=== PATIENT | female | born 1935 | race Hispanic/Latino ===

== ENCOUNTER 2022-06-20 18:14 | Inpatient (IN) | payer MEDICARE ==
[~2022-06-20] VITALS: Ht 147.3 cm; Wt 72.1 kg
[~2022-06-20 18:14] MED LIST: POVIDONE IODINE 0.05% 0.05 % ML PO ONE; PROPOFOL IV EMULSION 10 MG/ML 20 ML VIAL ONE
[2022-06-20 18:45] LABS: BASOPHILS % 0.2 % (0.0-1.0); EOSINOPHILS # (AUTO) 0.1 (0.0-0.4); EOSINOPHILS % 1.6 % (0.0-6.0); HEMATOCRIT 31.3 % (34.2-44.1); HEMOGLOBIN 10.5 g/dL (12.0-16.0); LYMPHOCYTES # (AUTO) 0.5 (1.0-3.2); MEAN CORPUSCULAR HEMOGLOBIN 31.1 pg (28-32); MEAN CORPUSCULAR HGB CONC 33.5 g/dL (31-35); MEAN CORPUSCULAR VOLUME 92.6 fL (81-99); MONOCYTES # (AUTO) 0.4 (0.2-0.8); MONOCYTES % 6.6 % (4.4-11.3); NEUTROPHILS # (AUTO) 4.8 (2.1-6.9); NEUTROPHILS % 82.3 % (38.7-80.0); PLATELET COUNT 171 x10e3/uL (140-360); RED BLOOD COUNT 3.38 x10e6/uL (3.6-5.1); RED CELL DISTRIBUTION WIDTH 13.7 % (11.7-14.4)
[2022-06-20 18:51] LABS: PARTIAL THROMBOPLASTIN TIME 36.2 seconds (23.8-35.5); PROTHROMBIN TIME 13.7 seconds (11.9-14.5)
[2022-06-20 18:58] LABS: ALBUMIN 3.2 g/dL (3.5-5.0); ALBUMIN/GLOBULIN RATIO 0.9 (0.8-2.0); ALKALINE PHOSPHATASE 58 IU/L (40-150); BLOOD UREA NITROGEN 27 mg/dL (7-26); BUN/CREATININE RATIO 20 (6-25); CALCIUM 9.7 mg/dL (8.4-10.2); CARBON DIOXIDE 22 mmol/L (22-29); CHLORIDE 98 mmol/L (98-107); CREATINE KINASE 43 IU/L (29-168); CREATININE, SERUM 1.34 mg/dL (0.57-1.11); GLUCOSE 97 mg/dL (74-118); SODIUM 129 mmol/L (136-145)
[2022-06-20 18:59] LABS: ALANINE AMINOTRANSFERASE < 6 IU/L (0-55)
[2022-06-20 19:08] LABS: B-TYPE NATRIURETIC PEPTIDE2 112.6 pg/mL (0-100)
[2022-06-20] MEDS ORDERED: DEXTROSE 50% SYRINGE 50 ML IV PRN (22:45)
[2022-06-20] MEDS ORDERED: ONDANSETRON HCL INJ 2MG/ML 2ML 2 MG/ML VIAL IV PRN (22:45)
[2022-06-21] VITALS (14 sets, daily range): BP systolic 117–188; BP diastolic 65–89; PULSE 66–81; RESP 16–21; TEMP 97.6–98; O2SAT 93–99
[2022-06-21] MEDS ORDERED: SODIUM CHLORIDE 0.9% 250ML 250 ML ONE (00:18)
[2022-06-21] MEDS ORDERED: SINEMET 25-1001 EACH PO (03:41)
[2022-06-21] MEDS ORDERED: CYMBALTA30 MG (03:54)
[2022-06-21] MEDS ORDERED: ROPINIROLE HCL4 M1 PO (03:54)
[2022-06-21] MEDS ORDERED: GUAIFENESIN600 M1 PO (03:54)
[2022-06-21] MEDS ORDERED: FLOMAX0.4 MG PO (03:54)
[2022-06-21] MEDS ORDERED: PANTOPRAZOLE SO40 MG PO (03:54)
[2022-06-21] MEDS ORDERED: MYRBETRIQ50 MG PO (03:54)
[2022-06-21] MEDS ORDERED: ALLEGRA ALLERGY60 MG PO (03:54)
[2022-06-21] MEDS ORDERED: NAMENDA10 MG PO (03:54)
[2022-06-21] MEDS ORDERED: NUPLAZID34 MG PO (03:54)
[2022-06-21] MEDS ORDERED: MODAFINIL100 MG PO (03:54)
[2022-06-21] MEDS ORDERED: HYDRALAZINE HCL 20 MG/ML VIAL IV PRN (04:00)
[2022-06-21] MEDS ORDERED: TORSEMIDE20 MG PO (04:06)
[2022-06-21] MEDS ORDERED: NEURONTIN100 MG PO (04:06)
[2022-06-21] MEDS ORDERED: TIZANIDINE HCL4 M1 PO (04:06)
[2022-06-21] MEDS ORDERED: TYLENOL325 MG PO (04:06)
[2022-06-21 06:49] LABS: BASOPHILS % 0.5 % (0.0-1.0); EOSINOPHILS # (AUTO) 0.2 (0.0-0.4); EOSINOPHILS % 4.2 % (0.0-6.0); HEMATOCRIT 27.9 % (34.2-44.1); HEMOGLOBIN 9.3 g/dL (12.0-16.0); LYMPHOCYTES # (AUTO) 0.7 (1.0-3.2); LYMPHOCYTES % 17.8 % (18.0-39.1); MEAN CORPUSCULAR HEMOGLOBIN 30.6 pg (28-32); MEAN CORPUSCULAR HGB CONC 33.3 g/dL (31-35); MEAN CORPUSCULAR VOLUME 91.8 fL (81-99); MONOCYTES # (AUTO) 0.4 (0.2-0.8); NEUTROPHILS # (AUTO) 2.6 (2.1-6.9); NEUTROPHILS % 67.2 % (38.7-80.0); PLATELET COUNT 181 x10e3/uL (140-360); RED BLOOD COUNT 3.04 x10e6/uL (3.6-5.1); RED CELL DISTRIBUTION WIDTH 13.2 % (11.7-14.4)
[2022-06-21 07:01] LABS: ALBUMIN 2.7 g/dL (3.5-5.0); ALBUMIN/GLOBULIN RATIO 0.8 (0.8-2.0); ALKALINE PHOSPHATASE 51 IU/L (40-150); ANION GAP 12.5 mmol/L (8-16); BLOOD UREA NITROGEN 24 mg/dL (7-26); BUN/CREATININE RATIO 20 (6-25); CALCIUM 9.3 mg/dL (8.4-10.2); CARBON DIOXIDE 22 mmol/L (22-29); CHLORIDE 101 mmol/L (98-107); CREATININE, SERUM 1.18 mg/dL (0.57-1.11); GLUCOSE 79 mg/dL (74-118); POTASSIUM 4.5 mmol/L (3.5-5.1); SODIUM 131 mmol/L (136-145)
[2022-06-21 07:14] LABS: ALANINE AMINOTRANSFERASE < 6 IU/L (0-55)
[2022-06-21] MEDS: INSULIN REGULAR, HUMAN 100 UNIT/1 ML SQ SCH ×4 (07:30→20:30)
[2022-06-21] MEDS: CARBIDOPA/LEVODOPA 25/100 TAB PO SCH ×4 (09:25→20:36)
[2022-06-21] MEDS ORDERED: AZITHROMYCIN 250 MG TAB PO ONE (09:45)
[2022-06-21] MEDS ORDERED: PANTOPRAZOLE SOD 40 MG TABEC PO ONE (09:45)
[2022-06-21] MEDS: TORSEMIDE 10 MG TAB PO SCH (10:05)
[2022-06-21] MEDS: ALBUTEROL SULF 0.083% NEB SOLN 3 ML NEB NEB SCH ×2 (14:45→20:05)
[2022-06-21] MEDS ORDERED: ACETAMINOPHEN 325 MG TAB PO PRN (18:45)
[2022-06-21] MEDS ORDERED: TIZANIDINE HCL 4 MG TAB PO PRN (18:45)
[2022-06-21] MEDS: GABAPENTIN 100 MG CAP PO SCH (20:36)
[2022-06-21] MEDS: HEPARIN SOD (PORCINE) 5,000 UNIT/ML VIAL SC SCH (20:45)
[2022-06-22] VITALS (10 sets, daily range): BP systolic 115–141; BP diastolic 58–78; PULSE 72–80; RESP 16–21; TEMP 97.4–98.3; O2SAT 93–98
[2022-06-22] MEDS ORDERED: LORAZEPAM INJ 2 MG/ML VIAL IV PRN (00:45)
[2022-06-22 06:45] LABS: BASOPHILS % 0.8 % (0.0-1.0); EOSINOPHILS # (AUTO) 0.1 (0.0-0.4); HEMATOCRIT 28.7 % (34.2-44.1); HEMOGLOBIN 9.6 g/dL (12.0-16.0); LYMPHOCYTES # (AUTO) 0.8 (1.0-3.2); LYMPHOCYTES % 16.8 % (18.0-39.1); MEAN CORPUSCULAR HEMOGLOBIN 30.9 pg (28-32); MEAN CORPUSCULAR HGB CONC 33.4 g/dL (31-35); MEAN CORPUSCULAR VOLUME 92.3 fL (81-99); MONOCYTES # (AUTO) 0.4 (0.2-0.8); MONOCYTES % 9.1 % (4.4-11.3); NEUTROPHILS # (AUTO) 3.3 (2.1-6.9); NEUTROPHILS % 70.1 % (38.7-80.0); PLATELET COUNT 226 x10e3/uL (140-360); RED BLOOD COUNT 3.11 x10e6/uL (3.6-5.1); RED CELL DISTRIBUTION WIDTH 13.3 % (11.7-14.4)
[2022-06-22] MEDS: INSULIN REGULAR, HUMAN 100 UNIT/1 ML SQ SCH ×4 (07:30→20:57)
[2022-06-22 07:31] LABS: ANION GAP 12.3 mmol/L (8-16); CALCIUM 9.1 mg/dL (8.4-10.2); CREATININE, SERUM 1.79 mg/dL (0.57-1.11); POTASSIUM 4.3 mmol/L (3.5-5.1)
[2022-06-22] MEDS: LEVALBUTEROL HCL SOLN NEBU 0.63 MG/3 ML NEB INH SCH ×3 (07:43→19:15)
[2022-06-22] MEDS: AZITHROMYCIN 250 MG TAB PO SCH (08:49)
[2022-06-22] MEDS: TORSEMIDE 10 MG TAB PO SCH (08:49)
[2022-06-22] MEDS: PANTOPRAZOLE SOD 40 MG TABEC PO SCH (08:49)
[2022-06-22] MEDS: DULOXETINE HCL 30 MG DELAYED RELEASE PO SCH (08:49)
[2022-06-22] MEDS: GABAPENTIN 100 MG CAP PO SCH ×3 (08:49→20:57)
[2022-06-22] MEDS: GUAIFENESIN 600 MG TAB PO SCH (08:49)
[2022-06-22] MEDS: LORATADINE 10 MG TAB PO SCH (08:50)
[2022-06-22] MEDS: CARBIDOPA/LEVODOPA 25/100 TAB PO SCH ×4 (08:50→20:58)
[2022-06-22] MEDS: HEPARIN SOD (PORCINE) 5,000 UNIT/ML VIAL SC SCH ×2 (08:58→21:06)
[2022-06-22] MEDS: MODAFINIL 100 MG TAB PO SCH (09:00)
[2022-06-22] MEDS ORDERED: PIMAVANSERIN PO SCH (09:00)
[2022-06-22] MEDS ORDERED: MEMANTINE 10 MG TAB PO SCH (09:00)
[2022-06-22] MEDS ORDERED: TAMSULOSIN HCL 0.4 MG CAP PO SCH (09:00)
[2022-06-22] MEDS ORDERED: MYBETRIQ PO SCH (09:00)
[2022-06-22] MEDS ORDERED: ROPINIROLE HCL 1 MG TAB PO SCH (09:30)
[2022-06-22] MEDS: MEMANTINE 10 MG TAB PO SCH (20:58)
[2022-06-22] MEDS: ROPINIROLE HCL 1 MG TAB PO SCH (20:58)
[2022-06-22] MEDS: MYBETRIQ PO SCH (21:00)
[2022-06-23] VITALS (13 sets, daily range): BP systolic 128–144; BP diastolic 67–81; PULSE 70–83; RESP 16–20; TEMP 97.5–99; O2SAT 93–100
[2022-06-23] MEDS: LEVALBUTEROL HCL SOLN NEBU 0.63 MG/3 ML NEB INH SCH ×4 (01:05→19:50)
[2022-06-23] MEDS: PIMAVANSERIN PO SCH ×2 (04:08→13:09)
[2022-06-23] MEDS: INSULIN REGULAR, HUMAN 100 UNIT/1 ML SQ SCH ×4 (07:30→21:00)
[2022-06-23] MEDS: DULOXETINE HCL 30 MG DELAYED RELEASE PO SCH (09:03)
[2022-06-23] MEDS: TORSEMIDE 10 MG TAB PO SCH (09:03)
[2022-06-23] MEDS: PANTOPRAZOLE SOD 40 MG TABEC PO SCH (09:03)
[2022-06-23] MEDS: CARBIDOPA/LEVODOPA 25/100 TAB PO SCH ×4 (09:04→21:14)
[2022-06-23] MEDS: AZITHROMYCIN 250 MG TAB PO SCH (09:04)
[2022-06-23] MEDS: LORATADINE 10 MG TAB PO SCH (09:04)
[2022-06-23] MEDS: MODAFINIL 100 MG TAB PO SCH (09:04)
[2022-06-23] MEDS: GUAIFENESIN 600 MG TAB PO SCH (09:04)
[2022-06-23] MEDS: MEMANTINE 10 MG TAB PO SCH ×2 (09:05→21:15)
[2022-06-23] MEDS: GABAPENTIN 100 MG CAP PO SCH ×3 (09:05→21:15)
[2022-06-23] MEDS: HEPARIN SOD (PORCINE) 5,000 UNIT/ML VIAL SC SCH ×2 (09:14→21:22)
[2022-06-23] MEDS ORDERED: ONDANSETRON HCL 4 MG ORAL DISINTEGRATING TAB PO PRN (11:45)
[2022-06-23] MEDS: TAMSULOSIN HCL 0.4 MG CAP PO SCH (13:08)
[2022-06-23] MEDS ORDERED: MAGNESIUM200 MG (18:00)
[2022-06-23] MEDS: MYBETRIQ PO SCH (21:00)
[2022-06-23] MEDS: ROPINIROLE HCL 1 MG TAB PO SCH (21:14)
[2022-06-24] VITALS (11 sets, daily range): BP systolic 107–138; BP diastolic 67–77; PULSE 72–81; RESP 16–19; TEMP 97.3–98.4; O2SAT 94–100
[2022-06-24] MEDS: LEVALBUTEROL HCL SOLN NEBU 0.63 MG/3 ML NEB INH SCH ×4 (00:30→19:50)
[2022-06-24 05:48] LABS: BASOPHILS % 0.3 % (0.0-1.0); EOSINOPHILS # (AUTO) 0.1 (0.0-0.4); EOSINOPHILS % 1.4 % (0.0-6.0); HEMOGLOBIN 9.4 g/dL (12.0-16.0); LYMPHOCYTES # (AUTO) 0.4 (1.0-3.2); LYMPHOCYTES % 9.5 % (18.0-39.1); MEAN CORPUSCULAR HEMOGLOBIN 30.4 pg (28-32); MEAN CORPUSCULAR HGB CONC 32.4 g/dL (31-35); MEAN CORPUSCULAR VOLUME 93.9 fL (81-99); MONOCYTES # (AUTO) 0.2 (0.2-0.8); MONOCYTES % 4.9 % (4.4-11.3); NEUTROPHILS # (AUTO) 3.1 (2.1-6.9); NEUTROPHILS % 83.6 % (38.7-80.0); PLATELET COUNT 193 x10e3/uL (140-360); RED BLOOD COUNT 3.09 x10e6/uL (3.6-5.1); RED CELL DISTRIBUTION WIDTH 13.8 % (11.7-14.4)
[2022-06-24 06:15] LABS: ALANINE AMINOTRANSFERASE < 6 IU/L (0-55); ALBUMIN 2.7 g/dL (3.5-5.0); ALBUMIN/GLOBULIN RATIO 0.8 (0.8-2.0); ALKALINE PHOSPHATASE 46 IU/L (40-150); ANION GAP 12.3 mmol/L (8-16); BLOOD UREA NITROGEN 24 mg/dL (7-26); BUN/CREATININE RATIO 15 (6-25); CALCIUM 8.8 mg/dL (8.4-10.2); CARBON DIOXIDE 24 mmol/L (22-29); CHLORIDE 101 mmol/L (98-107); CREATININE, SERUM 1.62 mg/dL (0.57-1.11); GLUCOSE 87 mg/dL (74-118); POTASSIUM 4.3 mmol/L (3.5-5.1); SODIUM 133 mmol/L (136-145)
[2022-06-24] MEDS: INSULIN REGULAR, HUMAN 100 UNIT/1 ML SQ SCH ×4 (07:30→20:33)
[2022-06-24] MEDS: CARBIDOPA/LEVODOPA 25/100 TAB PO SCH ×4 (09:00→20:35)
[2022-06-24] MEDS: GABAPENTIN 100 MG CAP PO SCH ×3 (09:00→20:35)
[2022-06-24] MEDS: HEPARIN SOD (PORCINE) 5,000 UNIT/ML VIAL SC SCH ×2 (09:49→20:39)
[2022-06-24] MEDS: GUAIFENESIN 600 MG TAB PO SCH (13:46)
[2022-06-24] MEDS: LORATADINE 10 MG TAB PO SCH (13:46)
[2022-06-24] MEDS: TAMSULOSIN HCL 0.4 MG CAP PO SCH (13:46)
[2022-06-24] MEDS: AZITHROMYCIN 250 MG TAB PO SCH (13:46)
[2022-06-24] MEDS: DULOXETINE HCL 30 MG DELAYED RELEASE PO SCH (13:46)
[2022-06-24] MEDS: TORSEMIDE 10 MG TAB PO SCH (13:50)
[2022-06-24] MEDS: MODAFINIL 100 MG TAB PO SCH (13:50)
[2022-06-24] MEDS: MEMANTINE 10 MG TAB PO SCH ×2 (13:50→20:35)
[2022-06-24] MEDS: PIMAVANSERIN PO SCH (13:52)
[2022-06-24] MEDS: PANTOPRAZOLE SOD 40 MG TABEC PO SCH (18:13)
[2022-06-24] MEDS: MYBETRIQ PO SCH (20:40)
[2022-06-24] MEDS: ROPINIROLE HCL 1 MG TAB PO SCH (20:40)
[2022-06-25] VITALS (11 sets, daily range): BP systolic 85–162; BP diastolic 57–88; PULSE 75–96; RESP 16–19; TEMP 97.4–98.8; O2SAT 89–98
[2022-06-25] MEDS: LEVALBUTEROL HCL SOLN NEBU 0.63 MG/3 ML NEB INH SCH ×4 (00:05→19:05)
[2022-06-25 05:41] LABS: BASOPHILS % 0.3 % (0.0-1.0); EOSINOPHILS # (AUTO) 0.2 (0.0-0.4); EOSINOPHILS % 4.4 % (0.0-6.0); HEMATOCRIT 28.3 % (34.2-44.1); HEMOGLOBIN 9.2 g/dL (12.0-16.0); LYMPHOCYTES # (AUTO) 0.6 (1.0-3.2); LYMPHOCYTES % 16.6 % (18.0-39.1); MEAN CORPUSCULAR HEMOGLOBIN 30.6 pg (28-32); MEAN CORPUSCULAR HGB CONC 32.5 g/dL (31-35); MONOCYTES # (AUTO) 0.4 (0.2-0.8); MONOCYTES % 9.5 % (4.4-11.3); NEUTROPHILS # (AUTO) 2.5 (2.1-6.9); NEUTROPHILS % 68.9 % (38.7-80.0); PLATELET COUNT 158 x10e3/uL (140-360); RED BLOOD COUNT 3.01 x10e6/uL (3.6-5.1); RED CELL DISTRIBUTION WIDTH 13.7 % (11.7-14.4)
[2022-06-25 06:10] LABS: ALBUMIN 2.7 g/dL (3.5-5.0); ALBUMIN/GLOBULIN RATIO 0.9 (0.8-2.0); ANION GAP 12.3 mmol/L (8-16); CALCIUM 8.8 mg/dL (8.4-10.2); CREATININE, SERUM 1.5 mg/dL (0.57-1.11); POTASSIUM 4.3 mmol/L (3.5-5.1)
[2022-06-25] MEDS: INSULIN REGULAR, HUMAN 100 UNIT/1 ML SQ SCH ×4 (07:30→21:00)
[2022-06-25] MEDS: AZITHROMYCIN 250 MG TAB PO SCH (08:14)
[2022-06-25] MEDS: DULOXETINE HCL 30 MG DELAYED RELEASE PO SCH (08:14)
[2022-06-25] MEDS: MEMANTINE 10 MG TAB PO SCH ×2 (08:14→21:29)
[2022-06-25] MEDS: MODAFINIL 100 MG TAB PO SCH (08:14)
[2022-06-25] MEDS: GABAPENTIN 100 MG CAP PO SCH ×3 (08:14→21:30)
[2022-06-25] MEDS: GUAIFENESIN 600 MG TAB PO SCH (08:14)
[2022-06-25] MEDS: TORSEMIDE 10 MG TAB PO SCH (08:17)
[2022-06-25] MEDS: LORATADINE 10 MG TAB PO SCH (08:17)
[2022-06-25] MEDS: CARBIDOPA/LEVODOPA 25/100 TAB PO SCH ×4 (08:17→21:30)
[2022-06-25] MEDS: HEPARIN SOD (PORCINE) 5,000 UNIT/ML VIAL SC SCH ×2 (10:00→21:34)
[2022-06-25] MEDS: TAMSULOSIN HCL 0.4 MG CAP PO SCH (12:46)
[2022-06-25] MEDS: PIMAVANSERIN PO SCH (12:50)
[2022-06-25] MEDS: PANTOPRAZOLE SOD 40 MG TABEC PO SCH (17:54)
[2022-06-25] MEDS: ROPINIROLE HCL 1 MG TAB PO SCH (21:30)
[2022-06-26] VITALS (12 sets, daily range): BP systolic 106–155; BP diastolic 66–88; PULSE 59–102; RESP 15–20; TEMP 97.5–99; O2SAT 86–100
[2022-06-26] MEDS: MYBETRIQ PO SCH (00:11)
[2022-06-26] MEDS: LEVALBUTEROL HCL SOLN NEBU 0.63 MG/3 ML NEB INH SCH ×4 (00:50→19:25)
[2022-06-26 01:01] LABS: % IRON SATURATION 12 % (15-50); IRON 28 ug/dL (50-170); TOTAL IRON BINDING CAPACITY 231 ug/dL (261-478); TRANSFERRIN 165 mg/dL (180-382)
[2022-06-26 06:48] LABS: BASOPHILS % 0.3 % (0.0-1.0); EOSINOPHILS # (AUTO) 0.2 (0.0-0.4); EOSINOPHILS % 5.1 % (0.0-6.0); HEMOGLOBIN 8.7 g/dL (12.0-16.0); LYMPHOCYTES # (AUTO) 0.6 (1.0-3.2); LYMPHOCYTES % 14.8 % (18.0-39.1); MEAN CORPUSCULAR HEMOGLOBIN 30.4 pg (28-32); MEAN CORPUSCULAR HGB CONC 32.2 g/dL (31-35); MEAN CORPUSCULAR VOLUME 94.4 fL (81-99); MONOCYTES # (AUTO) 0.3 (0.2-0.8); MONOCYTES % 8.2 % (4.4-11.3); NEUTROPHILS # (AUTO) 2.8 (2.1-6.9); NEUTROPHILS % 71.3 % (38.7-80.0); PLATELET COUNT 166 x10e3/uL (140-360); RED BLOOD COUNT 2.86 x10e6/uL (3.6-5.1); RED CELL DISTRIBUTION WIDTH 13.8 % (11.7-14.4)
[2022-06-26 07:05] LABS: ANION GAP 11.1 mmol/L (8-16); CALCIUM 8.7 mg/dL (8.4-10.2); CREATININE, SERUM 1.32 mg/dL (0.57-1.11); POTASSIUM 4.1 mmol/L (3.5-5.1)
[2022-06-26] MEDS: INSULIN REGULAR, HUMAN 100 UNIT/1 ML SQ SCH ×4 (07:30→21:00)
[2022-06-26] MEDS ORDERED: AMLODIPINE BESYLATE 5 MG TAB PO SCH (09:00)
[2022-06-26] MEDS: CARBIDOPA/LEVODOPA 25/100 TAB PO SCH ×4 (09:00→21:11)
[2022-06-26] MEDS: GABAPENTIN 100 MG CAP PO SCH ×3 (09:00→21:10)
[2022-06-26] MEDS: PIMAVANSERIN PO SCH (12:00)
[2022-06-26] MEDS: PANTOPRAZOLE SOD 40 MG TABEC PO SCH (14:48)
[2022-06-26] MEDS: MEMANTINE 10 MG TAB PO SCH ×2 (15:04→21:10)
[2022-06-26] MEDS: LORATADINE 10 MG TAB PO SCH (15:04)
[2022-06-26] MEDS: DULOXETINE HCL 30 MG DELAYED RELEASE PO SCH (15:04)
[2022-06-26] MEDS: TAMSULOSIN HCL 0.4 MG CAP PO SCH (15:04)
[2022-06-26] MEDS: GUAIFENESIN 600 MG TAB PO SCH (15:04)
[2022-06-26] MEDS: AZITHROMYCIN 250 MG TAB PO SCH (15:05)
[2022-06-26] MEDS: MODAFINIL 100 MG TAB PO SCH (15:05)
[2022-06-26] MEDS: TORSEMIDE 10 MG TAB PO SCH (15:05)
[2022-06-26] MEDS: ROPINIROLE HCL 1 MG TAB PO SCH (21:10)
[2022-06-26] MEDS: NYSTATIN SUSPENSION 5 ML UDC PO SCH (22:20)
[2022-06-27] VITALS (24 sets, daily range): BP systolic 78–114; BP diastolic 57–85; PULSE 54–139; RESP 16–25; TEMP 98–99.5; O2SAT 93–100
[2022-06-27] MEDS: LEVALBUTEROL HCL SOLN NEBU 0.63 MG/3 ML NEB INH SCH ×4 (02:10→19:20)
[2022-06-27] MEDS: MYBETRIQ PO SCH ×2 (02:28→21:08)
[2022-06-27] MEDS: NYSTATIN SUSPENSION 5 ML UDC PO SCH ×3 (05:28→21:49)
[2022-06-27 07:06] LABS: ANION GAP 13.6 mmol/L (8-16); CALCIUM 8.9 mg/dL (8.4-10.2); CREATININE, SERUM 1.71 mg/dL (0.57-1.11); POTASSIUM 4.6 mmol/L (3.5-5.1)
[2022-06-27] MEDS: INSULIN REGULAR, HUMAN 100 UNIT/1 ML SQ SCH ×4 (07:30→20:28)
[2022-06-27] MEDS: GUAIFENESIN 600 MG TAB PO SCH ×2 (09:00→10:37)
[2022-06-27] MEDS: MODAFINIL 100 MG TAB PO SCH ×2 (09:00→10:37)
[2022-06-27] MEDS: GABAPENTIN 100 MG CAP PO SCH ×4 (09:00→21:03)
[2022-06-27] MEDS: TORSEMIDE 10 MG TAB PO SCH ×2 (09:00→10:37)
[2022-06-27] MEDS: MEMANTINE 10 MG TAB PO SCH ×3 (09:00→21:03)
[2022-06-27] MEDS: CARBIDOPA/LEVODOPA 25/100 TAB PO SCH ×5 (09:00→21:03)
[2022-06-27] MEDS ORDERED: AMIODARONE HCL 200 MG TAB PO ONE (10:00)
[2022-06-27] MEDS: APIXAB 2.5 MG TABLET PO SCH ×3 (10:00→18:32)
[2022-06-27] MEDS: AMIODARONE HCL 200 MG TAB PO SCH ×3 (10:35→21:03)
[2022-06-27] MEDS: DULOXETINE HCL 30 MG DELAYED RELEASE PO SCH ×2 (10:36→14:28)
[2022-06-27] MEDS: AZITHROMYCIN 250 MG TAB PO SCH ×2 (10:36→14:28)
[2022-06-27] MEDS: LORATADINE 10 MG TAB PO SCH ×2 (10:37→14:27)
[2022-06-27] MEDS ORDERED: DILTIAZEM HCL 5 MG/ML 5 ML VIAL IV STA (11:05)
[2022-06-27] MEDS ORDERED: SODIUM CHLORIDE 0.9% 1000ML 1,000 ML ONE (11:13)
[2022-06-27] MEDS ORDERED: DIGOXIN INJ 0.25 MG/ML 2 ML AMP ONE (11:13)
[2022-06-27] MEDS ORDERED: SODIUM CHLORIDE 0.9% 1000ML 1,000 ML IV ONE (11:30)
[2022-06-27] MEDS ORDERED: DIGOXIN INJ 0.25 MG/ML 2 ML AMP IV ONE (12:00)
[2022-06-27] MEDS: TAMSULOSIN HCL 0.4 MG CAP PO SCH (12:00)
[2022-06-27] MEDS ORDERED: AMIODARONE HCL 150 MG/100 ML BAG IV ONE (12:00)
[2022-06-27 12:10] LABS: ABG HCO3 17 mmol/L (22-26); ABG PCO2 28 mmHg (35-45); ABG PO2 92 mmHg (80-105); ABG TCO2 18
[2022-06-27] MEDS ORDERED: AMIODARONE HCL 100 ML IV ONE (12:15)
[2022-06-27] MEDS ORDERED: AMIODARONE 900MG 500 ML IV SCH ×2 (12:30→18:45)
[2022-06-27] MEDS: PIMAVANSERIN PO SCH (14:39)
[2022-06-27] MEDS: PANTOPRAZOLE SOD 40 MG TABEC PO SCH ×2 (17:29→18:32)
[2022-06-27] MEDS ORDERED: TRAMADOL HCL 50 MG TAB PO PRN (20:45)
[2022-06-27] MEDS: ROPINIROLE HCL 1 MG TAB PO SCH (21:00)
[2022-06-28] VITALS (34 sets, daily range): BP systolic 76–138; BP diastolic 47–110; PULSE 62–101; RESP 15–30; TEMP 97.3–98.1; O2SAT 80–99
[2022-06-28] MEDS: LEVALBUTEROL HCL SOLN NEBU 0.63 MG/3 ML NEB INH SCH ×4 (00:25→19:03)
[2022-06-28] MEDS: NYSTATIN SUSPENSION 5 ML UDC PO SCH ×3 (05:36→22:05)
[2022-06-28] MEDS: INSULIN REGULAR, HUMAN 100 UNIT/1 ML SQ SCH ×4 (07:30→21:00)
[2022-06-28] MEDS: MEMANTINE 10 MG TAB PO SCH ×2 (08:57→22:05)
[2022-06-28] MEDS: GABAPENTIN 100 MG CAP PO SCH ×3 (08:57→22:05)
[2022-06-28] MEDS: AMIODARONE HCL 200 MG TAB PO SCH ×2 (08:57→22:05)
[2022-06-28] MEDS: TORSEMIDE 10 MG TAB PO SCH (08:57)
[2022-06-28] MEDS: LORATADINE 10 MG TAB PO SCH (08:58)
[2022-06-28] MEDS: AZITHROMYCIN 250 MG TAB PO SCH (08:59)
[2022-06-28] MEDS: DULOXETINE HCL 30 MG DELAYED RELEASE PO SCH (09:06)
[2022-06-28] MEDS: APIXAB 2.5 MG TABLET PO SCH ×2 (09:07→17:42)
[2022-06-28] MEDS: GUAIFENESIN 600 MG TAB PO SCH (09:07)
[2022-06-28] MEDS: MODAFINIL 100 MG TAB PO SCH (09:07)
[2022-06-28] MEDS: CARBIDOPA/LEVODOPA 25/100 TAB PO SCH ×4 (09:07→22:05)
[2022-06-28] MEDS: IRON SUCROSE 100 MG in SODIUM CHLORIDE 0.9% 100 ML IV SCH (10:10)
[2022-06-28] MEDS: TAMSULOSIN HCL 0.4 MG CAP PO SCH (12:07)
[2022-06-28] MEDS: PIMAVANSERIN PO SCH (12:08)
[2022-06-28 12:12] LABS: BASOPHILS % 0.3 % (0.0-1.0); EOSINOPHILS # (AUTO) 0.1 (0.0-0.4); EOSINOPHILS % 2.3 % (0.0-6.0); HEMOGLOBIN 9.2 g/dL (12.0-16.0); LYMPHOCYTES # (AUTO) 0.5 (1.0-3.2); LYMPHOCYTES % 8.3 % (18.0-39.1); MEAN CORPUSCULAR HEMOGLOBIN 30.4 pg (28-32); MEAN CORPUSCULAR HGB CONC 31.7 g/dL (31-35); MEAN CORPUSCULAR VOLUME 95.7 fL (81-99); MONOCYTES # (AUTO) 0.5 (0.2-0.8); MONOCYTES % 7.8 % (4.4-11.3); NEUTROPHILS # (AUTO) 4.9 (2.1-6.9); PLATELET COUNT 193 x10e3/uL (140-360); RED BLOOD COUNT 3.03 x10e6/uL (3.6-5.1); RED CELL DISTRIBUTION WIDTH 14.1 % (11.7-14.4)
[2022-06-28 12:31] LABS: ANION GAP 13.2 mmol/L (8-16); CALCIUM 8.8 mg/dL (8.4-10.2); CREATININE, SERUM 2.16 mg/dL (0.57-1.11); POTASSIUM 4.2 mmol/L (3.5-5.1)
[2022-06-28] MEDS ORDERED: ASCORBIC ACID 500 MG TAB PO SCH (17:00)
[2022-06-28] MEDS ORDERED: SODIUM CHLORIDE 0.9% 500ML 500 ML IV ONE (20:45)
[2022-06-28] MEDS: ROPINIROLE HCL 1 MG TAB PO SCH (21:00)
[2022-06-28] MEDS: MYBETRIQ PO SCH (22:15)
[2022-06-29] VITALS (35 sets, daily range): BP systolic 79–139; BP diastolic 54–125; PULSE 23–98; RESP 18–27; TEMP 97.3–98.8; O2SAT 81–96
[2022-06-29] MEDS ORDERED: SODIUM CHLORIDE 0.9% 500ML 500 ML IV ONE ×4 (00:05→09:30)
[2022-06-29] MEDS ORDERED: NOREPINEPHRINE 8 MG/D5W 250 ML 250 ML ONE (00:34)
[2022-06-29] MEDS: LEVALBUTEROL HCL SOLN NEBU 0.63 MG/3 ML NEB INH SCH ×2 (02:00→08:46)
[2022-06-29] MEDS ORDERED: NOREPINEPHRINE 8 MG/D5W 250 ML 250 ML IV SCH (02:30)
[2022-06-29] MEDS: NYSTATIN SUSPENSION 5 ML UDC PO SCH (05:51)
[2022-06-29 06:41] LABS: BASOPHILS # (AUTO) 0.1 (0.0-0.1); BASOPHILS % 0.6 % (0.0-1.0); EOSINOPHILS # (AUTO) 0.1 (0.0-0.4); EOSINOPHILS % 0.4 % (0.0-6.0); HEMATOCRIT 30.9 % (34.2-44.1); HEMOGLOBIN 9.7 g/dL (12.0-16.0); LYMPHOCYTES # (AUTO) 0.7 (1.0-3.2); MEAN CORPUSCULAR HEMOGLOBIN 30.1 pg (28-32); MEAN CORPUSCULAR HGB CONC 31.4 g/dL (31-35); MONOCYTES # (AUTO) 0.9 (0.2-0.8); MONOCYTES % 7.6 % (4.4-11.3); NEUTROPHILS # (AUTO) 9.5 (2.1-6.9); NEUTROPHILS % 84.6 % (38.7-80.0); PLATELET COUNT 274 x10e3/uL (140-360); RED BLOOD COUNT 3.22 x10e6/uL (3.6-5.1); RED CELL DISTRIBUTION WIDTH 14.2 % (11.7-14.4)
[2022-06-29 07:07] LABS: ALBUMIN 2.4 g/dL (3.5-5.0); ALBUMIN/GLOBULIN RATIO 0.7 (0.8-2.0); ANION GAP 16.7 mmol/L (8-16); CALCIUM 8.6 mg/dL (8.4-10.2); CREATININE, SERUM 2.48 mg/dL (0.57-1.11); POTASSIUM 4.7 mmol/L (3.5-5.1)
[2022-06-29] MEDS: INSULIN REGULAR, HUMAN 100 UNIT/1 ML SQ SCH (07:30)
[2022-06-29] MEDS: AMIODARONE HCL 200 MG TAB PO SCH (09:46)
[2022-06-29] MEDS: DULOXETINE HCL 30 MG DELAYED RELEASE PO SCH (09:46)
[2022-06-29] MEDS: AZITHROMYCIN 250 MG TAB PO SCH (09:46)
[2022-06-29] MEDS: CARBIDOPA/LEVODOPA 25/100 TAB PO SCH (09:47)
[2022-06-29] MEDS: IRON SUCROSE 100 MG in SODIUM CHLORIDE 0.9% 100 ML IV SCH (10:07)
== END 2022-06-29 11:30 | disposition other institution (70) | DRG 193 ==
LOC: ER 18:34 → ERHOLD 22:37 → MED/SURG3 23:59 → ICU 06-27 11:51
PROVIDERS: ADMIT Family Medicine; ATTEND Family Medicine
PROC: 02HV33Z Insertion of Infusion Device into Superior Vena Cava, Percutaneous Approach (ICD-10-PCS; 2022-06-23)
PROC: 0DB78ZX Excision of Stomach, Pylorus, Via Natural or Artificial Opening Endoscopic, Diagnostic (ICD-10-PCS; principal; 2022-06-26 13:42)
DX: J18.9 Pneumonia, unspecified organism (principal); I50.33 Acute on chronic diastolic (congestive) heart failure; J96.01 Acute respiratory failure with hypoxia; I31.4 Cardiac tamponade; G40.109 Localization-related (focal) (partial) symptomatic epilepsy and epileptic syndromes with simple partial seizures, not intractable, without status epilepticus; N17.9 Acute kidney failure, unspecified; I13.0 Hypertensive heart and chronic kidney disease with heart failure and stage 1 through stage 4 chronic kidney disease, or unspecified chronic kidney disease; E87.1 Hypo-osmolality and hyponatremia; K22.2 Esophageal obstruction; K20.90 Esophagitis, unspecified without bleeding; K29.70 Gastritis, unspecified, without bleeding; K31.84 Gastroparesis; G20 Parkinson's disease; E66.9 Obesity, unspecified; D63.1 Anemia in chronic kidney disease; N18.30 Chronic kidney disease, stage 3 unspecified; E11.22 Type 2 diabetes mellitus with diabetic chronic kidney disease; I48.0 Paroxysmal atrial fibrillation; Z96.642 Presence of left artificial hip joint; Z86.711 Personal history of pulmonary embolism; Z77.22 Contact with and (suspected) exposure to environmental tobacco smoke (acute) (chronic); Z20.822 Contact with and (suspected) exposure to COVID-19; Z68.33 Body mass index [BMI] 33.0-33.9, adult
CPT/HCPCS: 36415; 36556; 36600; 43239; 43450; 71045; 71250; 74230; 74470; 76937; 77001; 80048; 80053; 82533; 82550; 82553; 82607; 82746; 82805; 82948; 83540; 83735; 83880; 84466; 84484; 85025; 85045; 85610; 85730; 86039; 86140; 87040; 87070; 87205; 88305; 88312; 88342; 93005; 93306; 94640; 94799; 96372; 99252; 99284; C1769; J1160; J1644; J1756; J2060; J2543; J7030; J7040; J7050; Q0162